=== PATIENT | female | born 2000 | race Caucasian/White ===

== ENCOUNTER 2022-10-14 19:09 | Emergency (ER) | payer MEDICAID ==
[~2022-10-14] VITALS: Ht 157.5 cm; Wt 56.7 kg
[2022-10-14 19:15] VITALS: BP_SYST 142
[2022-10-14 20:00] VITALS: BP_SYST 128
== END 2022-10-14 20:00 | disposition home or self-care (01) ==
LOC: SED 19:09
DX: S61.412A Laceration without foreign body of left hand, initial encounter (principal); J45.909 Unspecified asthma, uncomplicated; Z79.899 Other long term (current) drug therapy; W26.0XXA Contact with knife, initial encounter; Y93.89 Activity, other specified; Y92.89 Other specified places as the place of occurrence of the external cause; Y99.8 Other external cause status
CPT/HCPCS: 99282